=== PATIENT | male | born 2005 | race Caucasian/White ===

== ENCOUNTER 2024-03-16 18:59 | Emergency (ER) | payer BC ==
[2024-03-16 21:28] LABS: CORONAVIRUS COVID-19 NAA NEGATIVE (NEGATIVE); INFLUENZA A NAA NEGATIVE (NEGATIVE); INFLUENZA B NAA NEGATIVE (NEGATIVE)
[2024-03-16] MEDS: Sodium Chloride 0.9% 1,000 ML IV ONE (21:36)
[2024-03-16] MEDS: Ondansetron 4 MG/2 ML SDV IVPUSH ONE (21:36)
[2024-03-16] MEDS: Alum Hydrox/Mag Hydrox/Simeth 15 ML, Metoclopramide 5 MG, Lidocaine 2% 5 ML PO ONE (21:38)
[2024-03-16 21:44] LABS: BASOPHILS ABSOLUTE AUTO 0.03 K/uL (0.00-0.30); BASOPHILS PERCENT AUTO 0.3 % (0.0-1.0); EOSINOPHILS PERCENT AUTO 1.2 % (0.0-5.0); HEMATOCRIT 44.3 % (42.0-52.0); HEMOGLOBIN 15.2 g/dL (14.0-18.0); IMMATURE GRAN ABSOLUTE AUTO 0.02 K/uL (0.00-0.05); IMMATURE GRAN PERCENT AUTO 0.2 % (0.0-0.4); LYMPHOCYTES ABSOLUTE AUTO 2.98 K/uL (2.00-8.80); LYMPHOCYTES PERCENT AUTO 34.7 % (50.0-65.0); MEAN CORPUSCULAR HEMOGLOBIN 30.6 pg (28.0-32.0); MEAN CORPUSCULAR HGB CONC 34.3 g/dL (32.0-36.0); MEAN CORPUSCULAR VOLUME 89.3 fL (83.0-99.0); MEAN PLATELET VOLUME 8.9 fL (9.4-12.4); MONOCYTES ABSOLUTE AUTO 0.56 K/uL (0.10-1.40); MONOCYTES PERCENT AUTO 6.5 % (2.0-10.0); NEUTROPHILS ABSOLUTE AUTO 4.89 K/uL (1.50-8.50); NEUTROPHILS PERCENT AUTO 57.1 % (35.0-45.0); PLATELET COUNT,PLT 320 K/uL (150-400); RED BLOOD CELL COUNT 4.96 M/uL (4.52-5.90); WHITE BLOOD CELL COUNT,WBC 8.58 K/uL (4.5-13.5)
[2024-03-16 22:03] LABS: A/G RATIO 1.2 (0.9-1.6); ALBUMIN 3.9 g/dL (3.4-5.0); BILIRUBIN TOTAL 0.5 mg/dL (0.2-1.0); CALCIUM 9.1 mg/dL (8.5-10.1); CARBON DIOXIDE,CO2 28.2 mmol/L (21.0-32.0); EST CRCL DRUG DOSING (CG) 114.95 mL/min; POTASSIUM,K 3.8 mmol/L (3.5-5.1); PROTEIN TOTAL,TP 7.1 g/dL (6.4-8.2)
== END 2024-03-16 22:59 | disposition home or self-care (01) ==
LOC: MW.ED 18:59
DX: K52.9 Noninfective gastroenteritis and colitis, unspecified (principal); Z75.8 Other problems related to medical facilities and other health care
CPT/HCPCS: 0240U; 36415; 80053; 83690; 85025; 96361; 96374; 99284; A9270; J2405; J7030

== ENCOUNTER 2024-04-03 18:23 | Emergency (ER) | payer BC ==
[2024-04-03 19:41] LABS: BASOPHILS ABSOLUTE AUTO 0.03 K/uL (0.00-0.30); BASOPHILS PERCENT AUTO 0.4 % (0.0-1.0); EOSINOPHILS ABSOLUTE AUTO 0.05 K/uL (0.00-0.70); EOSINOPHILS PERCENT AUTO 0.7 % (0.0-5.0); HEMATOCRIT 44.9 % (42.0-52.0); HEMOGLOBIN 15.6 g/dL (14.0-18.0); IMMATURE GRAN ABSOLUTE AUTO 0.03 K/uL (0.00-0.05); IMMATURE GRAN PERCENT AUTO 0.4 % (0.0-0.4); LYMPHOCYTES ABSOLUTE AUTO 2.33 K/uL (2.00-8.80); LYMPHOCYTES PERCENT AUTO 30.3 % (50.0-65.0); MEAN CORPUSCULAR HEMOGLOBIN 30.8 pg (28.0-32.0); MEAN CORPUSCULAR HGB CONC 34.7 g/dL (32.0-36.0); MEAN CORPUSCULAR VOLUME 88.7 fL (83.0-99.0); MEAN PLATELET VOLUME 8.8 fL (9.4-12.4); MONOCYTES ABSOLUTE AUTO 0.54 K/uL (0.10-1.40); NEUTROPHILS ABSOLUTE AUTO 4.71 K/uL (1.50-8.50); NEUTROPHILS PERCENT AUTO 61.2 % (35.0-45.0); PLATELET COUNT,PLT 367 K/uL (150-400); RED BLOOD CELL COUNT 5.06 M/uL (4.52-5.90); WHITE BLOOD CELL COUNT,WBC 7.69 K/uL (4.5-13.5)
[2024-04-03 20:12] LABS: A/G RATIO 1.1 (0.9-1.6); ALBUMIN 3.9 g/dL (3.4-5.0); BILIRUBIN TOTAL 0.4 mg/dL (0.2-1.0); CALCIUM 9.3 mg/dL (8.5-10.1); CARBON DIOXIDE,CO2 27.4 mmol/L (21.0-32.0); EST CRCL DRUG DOSING (CG) 114.95 mL/min; POTASSIUM,K 3.6 mmol/L (3.5-5.1); PROTEIN TOTAL,TP 7.4 g/dL (6.4-8.2)
== END 2024-04-03 20:41 | disposition home or self-care (01) ==
LOC: MW.ED 18:23
DX: R07.9 Chest pain, unspecified (principal); F17.290 Nicotine dependence, other tobacco product, uncomplicated; Z88.0 Allergy status to penicillin
CPT/HCPCS: 36415; 71046; 71046-26; 80053; 83690; 83880; 84484; 85025; 93005; 99285